=== PATIENT | female | born 1990 | race African-American/Black ===

== ENCOUNTER 2019-08-19 17:24 | Observation (INO) | payer SELFPAY ==
[~2019-08-19] VITALS: Ht 152.4 cm; Wt 50.3 kg
--- NOTE | 2019-08-19 17:55 | NUR ---
Nursing Note: UDS sent to lab, ordered per protocol for no care.
[2019-08-19 18:08] LABS: BILIRUBIN,URINE NEGATIVE (NEG); CLARITY,URINE CLEAR; COLOR,URINE YELLOW; NITRITE,URINE NEGATIVE (NEG); PROTEIN,URINE NEGATIVE (NEG-TRACE)
[2019-08-19 18:14] LABS: BARBITURATES NEG (NEG); BENZODIAZEPINES NEG (NEG); CANNABINOIDS POS (NEG); COCAINE NEG (NEG); METHADONE NEG (NEG); OPIATES NEG (NEG); PHENCYCLIDINE NEG (NEG)
[2019-08-19 18:18] LABS: AMPHETAMINE/METHAMPHETAMINE NEG (NEG)
[2019-08-19 18:21] LABS: BACTERIA,URINE FEW /HPF (0-FEW); RBC,URINE 0 /HPF (0-2); WBC,URINE 0 /HPF (0-4)
[2019-08-19 18:22] LABS: SQUAMOUS EPITHELIAL CELL,UR FEW /LPF
[2019-08-19] MEDS ORDERED: IV RINGERS,LACTATED 1000ML 1,000 ML IV SCH (18:23)
[2019-08-19 18:34] LABS: AMNIO PT NEGATIVE
== END 2019-08-19 20:30 | disposition home or self-care (01) ==
LOC: 3 SO LND 17:24
PROVIDERS: ADMIT Specialist; ATTEND Specialist
DX: O26.899 Other specified pregnancy related conditions, unspecified trimester (principal); R10.2 Pelvic and perineal pain; Z3A.00 Weeks of gestation of pregnancy not specified
CPT/HCPCS: 36415; 80307; 81001; 84112; G0378; G0379

== ENCOUNTER 2019-10-15 17:43 | Observation (INO) | payer SELFPAY ==
[2019-10-15 19:42] LABS: BILIRUBIN,URINE NEGATIVE (NEG); CLARITY,URINE CLEAR; COLOR,URINE YELLOW; NITRITE,URINE NEGATIVE (NEG); PROTEIN,URINE NEGATIVE (NEG-TRACE)
[2019-10-15 19:48] LABS: BARBITURATES NEG (NEG); BENZODIAZEPINES NEG (NEG); CANNABINOIDS POS (NEG); COCAINE NEG (NEG); METHADONE NEG (NEG); OPIATES NEG (NEG); PHENCYCLIDINE NEG (NEG)
[2019-10-15 19:52] LABS: AMPHETAMINE/METHAMPHETAMINE NEG (NEG)
[2019-10-15 19:59] LABS: BACTERIA,URINE FEW /HPF (0-FEW); SQUAMOUS EPITHELIAL CELL,UR FEW /LPF
--- NOTE | 2019-10-15 20:31 | RAD ---
Obstetric ultrasound greater than 14 weeks: Reason for examination: No care. Possible labor. Unsure of dates. 4 para 4 with history of one set of twins. Transabdominal ultrasound examination was performed. Cervix length is normal at 3.4 cm. Single viable intrauterine gestation is present and appears to be in cephalic presentation. Placenta is left lateral and grade 2. Adequate amniotic fluid appears be present with amniotic fluid index of 13.7 cm. Cardiac activity is present with a cardiac rate of 155 bpm and a 4 chambered heart. Three-vessel cord is identified. There is normal cord insertion. There is normal appearance to the bladder stomach kidneys and spine. No gross abnormality seen in the brain. movement is present. Biparietal diameter is 8.18 cm corresponding to gestational age of 32 weeks 6 days. Head circumference is 30.09 cm corresponding to gestational age of 33 weeks 3 days. Abdominal circumference is 27.5 cm corresponding to gestational age of 31 weeks 4 days. Femur length is 6.32 cm corresponding to gestational age of 32 weeks 5 days. Head circumference to abdominal circumference ratio is 1.09. Estimated weight is 192 4 g +/- 2 8 5 g. Estimated gestational age is 32 weeks 5 days with estimated date of confinement of 12/05/2019. IMPRESSION: Single viable intrauterine gestation with mean gestational age estimated at 32 weeks 5 days. Estimated date of confinement is 12/05/2019. No gross abnormalities evident. No abnormality seen at the placenta and there appears to be adequate amniotic fluid present. Electronically signed by: Edel Greer MD (10/15/2019 8:28 PM) [id number]
[2019-10-15 21:44] LABS: BASO % 0 % (0-3); EOS # 0.1 x10^3/uL (0.0-0.7); EOS % 1 % (0-3); HEMATOCRIT 31.2 % (36.0-47.0); HEMOGLOBIN 10.5 g/dL (12.0-15.5); LYMPH # 1.7 x10^3/uL (1.0-4.8); LYMPH % 17 % (24-48); MEAN CORPUSCULAR HEMOGLOBIN 29 pg (25-35); MEAN CORPUSCULAR HGB CONC 34 g/dL (31-37); MEAN CORPUSCULAR VOLUME 85 fL (79-100); MONO # 0.6 x10^3/uL (0.0-1.1); MONO % 6 % (0-9); NEUT # 7.3 x10^3/uL (1.8-7.7); NEUT % 75 % (31-73); PLATELET COUNT 303 x10^3/uL (140-400); RED BLOOD COUNT 3.65 x10^6/uL (3.50-5.40); RED CELL DISTRIBUTION WIDTH 14.4 % (11.5-14.5); WHITE BLOOD COUNT 9.8 x10^3/uL (4.0-11.0)
== END 2019-10-15 22:00 | disposition home or self-care (01) ==
LOC: 3 SO LND 17:43
PROVIDERS: ADMIT Obstetrics & Gynecology; ATTEND Obstetrics & Gynecology
DX: O26.893 Other specified pregnancy related conditions, third trimester (principal); R10.30 Lower abdominal pain, unspecified; Z3A.36 36 weeks gestation of pregnancy; Z98.891 History of uterine scar from previous surgery
CPT/HCPCS: 36415; 76805; 80307; 81001; 85025; 86592; 86703; 86850; 86900; 86901; 87340; G0378; G0379

== ENCOUNTER 2019-11-07 15:41 | Inpatient (IN) | payer SELFPAY ==
[~2019-11-07] VITALS: Ht 152.4 cm; Wt 49.9 kg
[2019-11-07] MEDS ORDERED: OXYTOCIN PREMIX 30 UNIT/500 ML NS BAG. IV ONE (16:00)
[2019-11-07] MEDS ORDERED: IV RINGERS,LACTATED 1000ML 1,000 ML IV SCH (16:12)
[2019-11-07] MEDS ORDERED: TERBUTALINE 1 MG/ML VIAL. SQ PRN (16:15)
[2019-11-07] MEDS ORDERED: LIDOCAINE 1% PF 30 ML VIAL. INJ PRN (16:15)
[2019-11-07] MEDS ORDERED: OXYTOCIN 30 UNIT/500 ML PREMIX 500 ML IV PRN ×3 (16:15→16:30)
[2019-11-07] MEDS ORDERED: 0.9 % SODIUM CHLORIDE 10 ML DISP.SYRIN. IV PRN ×2 (16:15→16:30)
[2019-11-07] MEDS ORDERED: ZOLPIDEM 5 MG TABLET. PO PRN (16:30)
[2019-11-07] MEDS ORDERED: ACETAMINOPHEN 325 MG TABLET. PO PRN (16:30)
[2019-11-07] MEDS ORDERED: MAG HYDROX/ALUMINUM HYD/SIMETH 30 ML ORAL.SUSP PO PRN (16:30)
[2019-11-07] MEDS ORDERED: SIMETHICONE 80 MG TAB.CHEW PO PRN (16:30)
[2019-11-07] MEDS ORDERED: MMR per PROTOCOL. MC PRN (16:30)
[2019-11-07] MEDS ORDERED: diphenhydrAMINE HCL 25 MG CAPSULE PO PRN (16:30)
[2019-11-07] MEDS ORDERED: PHENYLEPH/MINERAL OIL/PETROLAT RECTAL OINTMENT TUBE. RC PRN (16:30)
[2019-11-07] MEDS ORDERED: BENZOCAINE 20% TOPICAL AEROSOL SPRAY 57GM CAN. TP PRN (16:30)
[2019-11-07] MEDS ORDERED: MAGNESIUM HYDROXIDE 2,400 MG/30 ML ORAL.SUSP. PO PRN (16:30)
[2019-11-07] MEDS ORDERED: HYDROCORTISONE 1% TOPICAL OINTMENT 30GM TUBE. TP PRN (16:30)
[2019-11-07] MEDS ORDERED: IBUPROFEN 400 MG TABLET. PO PRN (16:30)
[2019-11-07 16:31] LABS: BASO % 0 % (0-3); EOS # 0.1 x10^3/uL (0.0-0.7); EOS % 1 % (0-3); HEMATOCRIT 34.4 % (36.0-47.0); HEMOGLOBIN 11.1 g/dL (12.0-15.5); LYMPH # 1.7 x10^3/uL (1.0-4.8); LYMPH % 15 % (24-48); MEAN CORPUSCULAR HEMOGLOBIN 27 pg (25-35); MEAN CORPUSCULAR HGB CONC 32 g/dL (31-37); MEAN CORPUSCULAR VOLUME 84 fL (79-100); MONO # 0.9 x10^3/uL (0.0-1.1); MONO % 8 % (0-9); NEUT # 8.4 x10^3/uL (1.8-7.7); NEUT % 76 % (31-73); PLATELET COUNT 305 x10^3/uL (140-400); RED BLOOD COUNT 4.09 x10^6/uL (3.50-5.40); RED CELL DISTRIBUTION WIDTH 14.1 % (11.5-14.5); WHITE BLOOD COUNT 11.1 x10^3/uL (4.0-11.0)
--- NOTE | 2019-11-07 16:38 | PDOC1 ---
OB HISTORY AND PHYSICAL DATE OF ADMISSION DATE OF ADMISSION Date of Admission: Nov 07, 2019 at 15:41 CHIEF COMPLAINT Problems: (1) HISTORY OF PRESENT Other Complications EDC: 11/17/19 LMP: February 2019 HPI: 29y @ 38.4 by 25wk u/s presents to L&D in active labor. The pt has presented to L&D during the , but outside of these eval has never established care. She began ctxing about 2hr prior to admission. She delivered within 2 min of arrival from EMS. She has asthma that requires two meds, but does not have an established PCP to manage her asthma. PMH: Asthma PSH: L/S hernia repair, C/S x 2 Meds: None All: NKDA OBHx: 1. TC/S (for breech), 2. TC/S, 3. ~32wk twin (precipitous) OB labs: A pos, antibody neg, 10.5/31.2, Plt 303, RPR NR, Hep B NR, HIV NR VTE PROPHYLAXIS ORDERED VTE Prophylaxis Devices: No VTE Pharmacological Prophylax: No OB - History Past Family/Social History * Past Medical, Surgical, Family and Obstetric Histories reviewed from chart. OB - Admission Exam Physical Exam Vitals: FHT: 130s +acels/no decels/mLTV [place]: 2 min SVE C/C/+2 Assessment/Plan Assessment/Plan A/P 29y @ 38.4 by 25wk u/s 1.) Active labor precipitous delivery (within 2 minutes of arrival) 2.) Asthma needs to establish with PCP prior to d/c 3.) Rubella unknown will draw today 4.) Prev C/S x 2, x 1 - precipitous delivery 5.) GBS unk 6.) Contraception Depo prior to d/c, arrange for long-term option as outpt Problem Qualifiers (1) : Weeks of gestation: 38 weeks Qualified Codes: Z3A.38 - 38 weeks gestation of ROSEMARIE DOTSON MD Nov 07, 2019 16:38
--- NOTE | 2019-11-07 16:40 | PDOC ---
VAGINAL DELIVERY DATE DATE: 11/07/19 TIME: 16:38 WEIGHT Weight [ ] ADDITIONAL NOTES Patient delivered a viable female infant over intact perineum at 1548. bulb suctioned at perineum. Cord double clamped and cut and infant handed to waiting RN. Wt 5lb 7oz. Apgars 9/9. Placenta delivered spontaneously, intact with 3VC. No lacerations observed. Good hemostatis. 20U of pitocin infused with IVFs. EBL 200. ROSEMARIE DOTSON MD Nov 07, 2019 16:40
[2019-11-07 16:47] LABS: AMPHETAMINE/METHAMPHETAMINE POS (NEG); BARBITURATES NEG (NEG); BENZODIAZEPINES NEG (NEG); CANNABINOIDS POS (NEG); COCAINE NEG (NEG); METHADONE NEG (NEG); OPIATES NEG (NEG); PHENCYCLIDINE NEG (NEG)
[2019-11-07 17:18] VITALS: BP 121/80
[2019-11-07 20:00] VITALS: BP 125/68
[2019-11-07] MEDS: IBUPROFEN 400 MG TABLET. PO PRN (20:05)
[2019-11-08] MEDS: oxyCODONE/APAP 5/325 1 TAB TABLET PO PRN ×3 (00:17→11:41)
[2019-11-08 00:30] VITALS: BP 109/74
[2019-11-08] MEDS: IBUPROFEN 400 MG TABLET. PO PRN ×4 (03:50→23:07)
[2019-11-08 04:00] VITALS: BP 111/75
[2019-11-08] MEDS: DOCUSATE SODIUM 100 MG CAPSULE. PO PRN ×2 (04:03→16:43)
[2019-11-08 05:32] LABS: BASO # 0.1 x10^3/uL (0.0-0.2); BASO % 1 % (0-3); EOS # 0.1 x10^3/uL (0.0-0.7); EOS % 1 % (0-3); HEMATOCRIT 28.9 % (36.0-47.0); HEMOGLOBIN 9.4 g/dL (12.0-15.5); LYMPH # 2.5 x10^3/uL (1.0-4.8); LYMPH % 20 % (24-48); MEAN CORPUSCULAR HEMOGLOBIN 28 pg (25-35); MEAN CORPUSCULAR HGB CONC 33 g/dL (31-37); MEAN CORPUSCULAR VOLUME 85 fL (79-100); MONO # 1.3 x10^3/uL (0.0-1.1); MONO % 10 % (0-9); NEUT % 69 % (31-73); PLATELET COUNT 288 x10^3/uL (140-400); RED BLOOD COUNT 3.41 x10^6/uL (3.50-5.40); RED CELL DISTRIBUTION WIDTH 14.2 % (11.5-14.5)
[2019-11-08] MEDS: FERROUS SULFATE 325 MG TABLET. PO SCH ×2 (08:54→16:43)
--- NOTE | 2019-11-08 09:18 | PDOC ---
PROGRESS NOTES Subjective Subjective Pt with good pain control. Lawrence PO. Voiding. Minimal lochia Objective Objective Vital Signs Date Time Temp Pulse Resp B/P (MAP) Pulse Ox O2 Delivery O2 Flow Rate FiO2 11/08/19 04:00 98.2 64 20 111/75 (87) Room Air 98.2 Physical Exam Physical Exam FFNT below umb No C/C/E Assessment Assessment A/P 29y PPD #1 s/p 1.) PP doing well 2.) Asthma will refer to PCP at PP appt 3.) Rubella unknown results pending 4.) Anemia - Hgb 11.1 -> 9.4, on Fe BID 5.) UDS - Amphetamines and Methamphetamines pos, social work consulted 6.) Contraception Depo prior to d/c, arrange for long-term option as outpt 7.) Cont PP care Comment Review of Relevant I have reviewed the following items arsen (where applicable) has been applied. Labs Laboratory Tests Test 11/07/19 16:19 11/07/19 16:20 11/07/19 16:29 11/08/19 05:10 White Blood Count 11.1 x10^3/uL (4.0-11.0) 13.0 x10^3/uL (4.0-11.0) Red Blood Count 4.09 x10^6/uL (3.50-5.40) 3.41 x10^6/uL (3.50-5.40) Hemoglobin 11.1 g/dL (12.0-15.5) 9.4 g/dL (12.0-15.5) Hematocrit 34.4 % (36.0-47.0) 28.9 % (36.0-47.0) Mean Corpuscular Volume 84 fL (79-100) 85 fL (79-100) Mean Corpuscular Hemoglobin 27 pg (25-35) 28 pg (25-35) Mean Corpuscular Hemoglobin Concent 32 g/dL (31-37) 33 g/dL (31-37) Red Cell Distribution Width 14.1 % (11.5-14.5) 14.2 % (11.5-14.5) Platelet Count 305 x10^3/uL (140-400) 288 x10^3/uL (140-400) Neutrophils (%) (Auto) 76 % (31-73) 69 % (31-73) Lymphocytes (%) (Auto) 15 % (24-48) 20 % (24-48) Monocytes (%) (Auto) 8 % (0-9) 10 % (0-9) Eosinophils (%) (Auto) 1 % (0-3) 1 % (0-3) Basophils (%) (Auto) 0 % (0-3) 1 % (0-3) Neutrophils # (Auto) 8.4 x10^3/uL (1.8-7.7) 9.0 x10^3/uL (1.8-7.7) Lymphocytes # (Auto) 1.7 x10^3/uL (1.0-4.8) 2.5 x10^3/uL (1.0-4.8) Monocytes # (Auto) 0.9 x10^3/uL (0.0-1.1) 1.3 x10^3/uL (0.0-1.1) Eosinophils # (Auto) 0.1 x10^3/uL (0.0-0.7) 0.1 x10^3/uL (0.0-0.7) Basophils # (Auto) 0.0 x10^3/uL (0.0-0.2) 0.1 x10^3/uL (0.0-0.2) Urine Opiates Screen Neg (NEG) Urine Methadone Screen Neg (NEG) Urine Barbiturates Neg (NEG) Urine Phencyclidine Screen Neg (NEG) Urine Amphetamine/Methamphetamine Pos (NEG) Urine Benzodiazepines Screen Neg (NEG) Urine Cocaine Screen Neg (NEG) Urine Cannabinoids Screen Pos (NEG) Urine Ethyl Alcohol Neg (NEG) Treponema pallidum Antibody Nonreactive (Nonreactive) Laboratory Tests Test 11/07/19 16:19 11/07/19 16:20 11/07/19 16:29 11/08/19 05:10 White Blood Count 11.1 x10^3/uL (4.0-11.0) 13.0 x10^3/uL (4.0-11.0) Red Blood Count 4.09 x10^6/uL (3.50-5.40) 3.41 x10^6/uL (3.50-5.40) Hemoglobin 11.1 g/dL (12.0-15.5) 9.4 g/dL (12.0-15.5) Hematocrit 34.4 % (36.0-47.0) 28.9 % (36.0-47.0) Mean Corpuscular Volume 84 fL (79-100) 85 fL (79-100) Mean Corpuscular Hemoglobin 27 pg (25-35) 28 pg (25-35) Mean Corpuscular Hemoglobin Concent 32 g/dL (31-37) 33 g/dL (31-37) Red Cell Distribution Width 14.1 % (11.5-14.5) 14.2 % (11.5-14.5) Platelet Count 305 x10^3/uL (140-400) 288 x10^3/uL (140-400) Neutrophils (%) (Auto) 76 % (31-73) 69 % (31-73) Lymphocytes (%) (Auto) 15 % (24-48) 20 % (24-48) Monocytes (%) (Auto) 8 % (0-9) 10 % (0-9) Eosinophils (%) (Auto) 1 % (0-3) 1 % (0-3) Basophils (%) (Auto) 0 % (0-3) 1 % (0-3) Neutrophils # (Auto) 8.4 x10^3/uL (1.8-7.7) 9.0 x10^3/uL (1.8-7.7) Lymphocytes # (Auto) 1.7 x10^3/uL (1.0-4.8) 2.5 x10^3/uL (1.0-4.8) Monocytes # (Auto) 0.9 x10^3/uL (0.0-1.1) 1.3 x10^3/uL (0.0-1.1) Eosinophils # (Auto) 0.1 x10^3/uL (0.0-0.7) 0.1 x10^3/uL (0.0-0.7) Basophils # (Auto) 0.0 x10^3/uL (0.0-0.2) 0.1 x10^3/uL (0.0-0.2) Urine Opiates Screen Neg (NEG) Urine Methadone Screen Neg (NEG) Urine Barbiturates Neg (NEG) Urine Phencyclidine Screen Neg (NEG) Urine Amphetamine/Methamphetamine Pos (NEG) Urine Benzodiazepines Screen Neg (NEG) Urine Cocaine Screen Neg (NEG) Urine Cannabinoids Screen Pos (NEG) Urine Ethyl Alcohol Neg (NEG) Treponema pallidum Antibody Nonreactive (Nonreactive) Medications Current Medications Sodium Chloride (Normal Saline Flush) 3 ml QSHIFT PRN IV AFTER MEDS AND BLOOD DRAWS; Start 11/07/19 at 16:15 Ringer's Solution 1,000 ml @ 125 mls/hr Q8H IV ; Start 11/07/19 at 16:12; Stop 11/07/19 at 20:20; Status DC Terbutaline Sulfate (Brethine) 0.25 mg 1X PRN PRN SQ SEE COMMENTS; Start 11/07/19 at 16:15; Stop 11/08/19 at 16:14 Lidocaine HCl (Xylocaine 1% Pf 30ml Vial) 30 ml 1X PRN PRN INJ SEE COMMENTS; Start 11/07/19 at 16:15; Stop 11/09/19 at 16:14 Oxytocin/Sodium Chloride 500 ml @ 0 mls/hr CONT PRN IV SEE I/O RECORD; Start 11/07/19 at 16:15; Stop 11/07/19 at 20:21; Status DC Oxytocin/Sodium Chloride 500 ml @ 0 mls/hr CONT PRN PRN IV Post delivery bleeding; Start 11/07/19 at 16:15 Ibuprofen (Motrin) 800 mg PRN Q6HRS PRN PO PAIN Last administered on 11/08/19at 03:50; Start 11/07/19 at 16:15 Sodium Chloride (Normal Saline Flush) 10 ml QSHIFT PRN IV AFTER MEDS AND BLOOD DRAWS; Start 11/07/19 at 16:30 Oxytocin/Sodium Chloride 500 ml @ 62.5 mls/hr CONT PRN IV SEE I/O RECORD; Start 11/07/19 at 16:30; Stop 11/08/19 at 00:29; Status DC Acetaminophen (Tylenol) 650 mg PRN Q6HRS PRN PO MILD PAIN / TEMP; Start 11/07/19 at 16:30 Ibuprofen (Motrin) 800 mg PRN Q8HRS PRN PO INFLAMMATION/PAIN PREVENTION; Start 11/07/19 at 16:30 Docusate Sodium (Colace) 100 mg PRN BID PRN PO CONSTIPATION Last administered on 11/08/19at 04:03; Start 11/07/19 at 16:30 Magnesium Hydroxide (Milk Of Magnesia) 2,400 mg PRN DAILY PRN PO CONSTIPATION Last administered on 11/08/19at 08:54; Start 11/07/19 at 16:30 Al Hydroxide/Mg Hydroxide (Mylanta Plus Xs) 30 ml PRN Q4HRS PRN PO HEARTBURN / GAS; Start 11/07/19 at 16:30 Simethicone (Gas-X) 80 mg PRN AFTMEALHC PRN PO GAS / BLOATING; Start 11/07/19 a t 16:30 Diphenhydramine HCl (Benadryl) 25 mg PRN Q6HRS PRN PO ITCHING; Start 11/07/19 at 16:30 Benzocaine (Americaine) 1 spray PRN QID PRN TP TOPICAL PAIN; Start 11/07/19 at 16:30 Phenyleph/Shark Oil/Min Oil/Petrol (Preparation H) 1 corry PRN QID PRN RC RECTAL PAIN; Start 11/07/19 at 16:30 Hydrocortisone (Cortaid) 1 corry PRN QID PRN TP PERINEAL PAIN; Start 11/07/19 at 16:30 Ferrous Sulfate (Feosol) 325 mg BIDWMEALS PO Last administered on 11/08/19at 08:54; Start 11/08/19 at 08:00 Zolpidem Tartrate (Ambien) 5 mg PRN QHS PRN PO INSOMNIA, MAY REPEAT X1; Start 11/07/19 at 16:30 Info (Do NOT chart on this placeholder) 1 ea 1X PRN PRN MC SEE COMMENTS; Start 11/07/19 at 16:30 Info (Do NOT chart on this placeholder) 1 ea 1X PRN PRN MC SEE COMMENTS; Start 11/07/19 at 16:30 Oxycodone/ Acetaminophen (Percocet 5/325) 1 tab PRN Q4HRS PRN PO MILD PAIN 1-3 Last administered on 11/08/19at 05:44; Start 11/07/19 at 16:30 Oxytocin/Sodium Chloride (Oxytocin Premix Infusion) 30 unit STK-MED ONCE IV ; Start 11/07/19 at 16:00; Stop 11/08/19 at 08:55; Status DC Vitals/I & O Vital Sign - Last 24 Hours 11/07/19 11/07/19 11/08/19 11/08/19 17:18 20:00 00:17 00:30 Temp 97.3 98.0 98.2 97.3 98.0 98.2 Pulse 64 85 90 Resp 20 24 24 B/P (MAP) 121/80 (94) 125/68 (87) 109/74 (86) O2 Delivery Room Air Room Air Room Air Room Air 11/08/19 11/08/19 01:15 04:00 Temp 98.2 98.2 Pulse 64 Resp 20 20 B/P (MAP) 111/75 (87) O2 Delivery Room Air ROSEMARIE DOTSON MD Nov 08, 2019 09:18
[2019-11-08 12:48] VITALS: BP 120/74
--- NOTE | 2019-11-08 13:46 | NUR ---
SS following up with referral regarding "mom with positive drug screen and history of not having custody of other children." SS reviewed chart and spoke with mother and RN. Mother UDS positive for Meth and UDS positive for Meth. RN attempting to collect Meconium. SS met with mother to assess circumstances surrounding referral. As observed, mother having difficulties focusing and answering questions. Mother reported she has had difficulties with addiction. Mother unable to provide definitive answer to when her last use of substances took place. Mother just reported that her last use was "awhile ago." Mother reported that she has lost custody of three other children to [facility]. She reported that her grandmother adopted her oldest child and that her twins were adopted by foster parents. Mother reported that she was too afraid to seek substance abuse help or care because she knew [place] [employer] and [facility]. [facility] hotline report made for positive drug screen, report of DCF history, and no care. Intake#[id number]. SS contacted [facility] and discussed with [facility] animal cruelty investigation supervisor, Dolly Hernández. Dolly reported being very familiar with mom and requested that remain in the hospital until they can file appropriate paperwork. and mother RN notified. SS will await further communication from [facility].
[2019-11-08] MEDS ORDERED: ALBUTEROL SULFATE 2.5 MG/3 ML NEBU. NEB PRN (18:00)
[2019-11-08 18:06] VITALS: BP 120/70
[2019-11-08] MEDS: CLOTRIMAZOLE 1% TOPICAL CREAM 15GM TUBE. TP SCH (18:22)
[2019-11-08 20:00] VITALS: BP 111/62
[2019-11-09 02:00] VITALS: BP 110/53
[2019-11-09 08:30] VITALS: BP 101/54
[2019-11-09] MEDS: FERROUS SULFATE 325 MG TABLET. PO SCH (10:06)
[2019-11-09] MEDS: DOCUSATE SODIUM 100 MG CAPSULE. PO PRN (10:06)
[2019-11-09] MEDS: CLOTRIMAZOLE 1% TOPICAL CREAM 15GM TUBE. TP SCH (10:09)
[2019-11-09] MEDS ORDERED: IBUP-1060 PO (10:23)
[2019-11-09] MEDS ORDERED: FERR325T14 PO (10:23)
[2019-11-09] MEDS ORDERED: DOCU-109 PO (10:23)
[2019-11-09] MEDS ORDERED: medroxyPROGESTERone IM 150 MG/ML VIAL. IM ONE (10:30)
--- NOTE | 2019-11-09 10:36 | PDOC ---
PROGRESS NOTES Subjective Subjective Pt with good pain control. Lawrence PO. Voiding. Minimal lochia Objective Objective Vital Signs Date Time Temp Pulse Resp B/P (MAP) Pulse Ox O2 Delivery O2 Flow Rate FiO2 11/09/19 08:30 98.1 67 12 101/54 (70) 99 Room Air 98.1 Physical Exam Physical Exam FFNT below umb no C/C/E Assessment Assessment A/P 29y PPD #2 s/p 1.) PP doing well 2.) Asthma will refer to PCP at PP appt 3.) Rubella unknown results pending 4.) Anemia - Hgb 11.1 -> 9.4, on Fe BID 5.) UDS - Amphetamines and Methamphetamines pos, social work consulted 6.) Contraception will give Depo prior to d/c, arrange for long-term option as outpt 7.) D/C home Comment Review of Relevant I have reviewed the following items arsen (where applicable) has been applied. Labs Laboratory Tests Test 11/07/19 16:19 11/07/19 16:20 11/07/19 16:29 11/08/19 05:10 White Blood Count 11.1 x10^3/uL (4.0-11.0) 13.0 x10^3/uL (4.0-11.0) Red Blood Count 4.09 x10^6/uL (3.50-5.40) 3.41 x10^6/uL (3.50-5.40) Hemoglobin 11.1 g/dL (12.0-15.5) 9.4 g/dL (12.0-15.5) Hematocrit 34.4 % (36.0-47.0) 28.9 % (36.0-47.0) Mean Corpuscular Volume 84 fL (79-100) 85 fL (79-100) Mean Corpuscular Hemoglobin 27 pg (25-35) 28 pg (25-35) Mean Corpuscular Hemoglobin Concent 32 g/dL (31-37) 33 g/dL (31-37) Red Cell Distribution Width 14.1 % (11.5-14.5) 14.2 % (11.5-14.5) Platelet Count 305 x10^3/uL (140-400) 288 x10^3/uL (140-400) Neutrophils (%) (Auto) 76 % (31-73) 69 % (31-73) Lymphocytes (%) (Auto) 15 % (24-48) 20 % (24-48) Monocytes (%) (Auto) 8 % (0-9) 10 % (0-9) Eosinophils (%) (Auto) 1 % (0-3) 1 % (0-3) Basophils (%) (Auto) 0 % (0-3) 1 % (0-3) Neutrophils # (Auto) 8.4 x10^3/uL (1.8-7.7) 9.0 x10^3/uL (1.8-7.7) Lymphocytes # (Auto) 1.7 x10^3/uL (1.0-4.8) 2.5 x10^3/uL (1.0-4.8) Monocytes # (Auto) 0.9 x10^3/uL (0.0-1.1) 1.3 x10^3/uL (0.0-1.1) Eosinophils # (Auto) 0.1 x10^3/uL (0.0-0.7) 0.1 x10^3/uL (0.0-0.7) Basophils # (Auto) 0.0 x10^3/uL (0.0-0.2) 0.1 x10^3/uL (0.0-0.2) Urine Opiates Screen Neg (NEG) Urine Methadone Screen Neg (NEG) Urine Barbiturates Neg (NEG) Urine Phencyclidine Screen Neg (NEG) Urine Amphetamine/Methamphetamine Pos (NEG) Urine Benzodiazepines Screen Neg (NEG) Urine Cocaine Screen Neg (NEG) Urine Cannabinoids Screen Pos (NEG) Urine Ethyl Alcohol Neg (NEG) Treponema pallidum Antibody Nonreactive (Nonreactive) Rubella IgG Antibody 12.70 index (Immune >0.99) Medications Current Medications Sodium Chloride (Normal Saline Flush) 3 ml QSHIFT PRN IV AFTER MEDS AND BLOOD DRAWS; Start 11/07/19 at 16:15 Ringer's Solution 1,000 ml @ 125 mls/hr Q8H IV ; Start 11/07/19 at 16:12; Stop 11/07/19 at 20:20; Status DC Terbutaline Sulfate (Brethine) 0.25 mg 1X PRN PRN SQ SEE COMMENTS; Start 11/07/19 at 16:15; Stop 11/08/19 at 16:14; Status DC Lidocaine HCl (Xylocaine 1% Pf 30ml Vial) 30 ml 1X PRN PRN INJ SEE COMMENTS; Start 11/07/19 at 16:15; Stop 11/09/19 at 16:14 Oxytocin/Sodium Chloride 500 ml @ 0 mls/hr CONT PRN IV SEE I/O RECORD; Start 11/07/19 at 16:15; Stop 11/07/19 at 20:21; Status DC Oxytocin/Sodium Chloride 500 ml @ 0 mls/hr CONT PRN PRN IV Post delivery bleeding; Start 11/07/19 at 16:15 Ibuprofen (Motrin) 800 mg PRN Q6HRS PRN PO PAIN Last administered on 11/08/19at 23:07; Start 11/07/19 at 16:15 Sodium Chloride (Normal Saline Flush) 10 ml QSHIFT PRN IV AFTER MEDS AND BLOOD DRAWS; Start 11/07/19 at 16:30 Oxytocin/Sodium Chloride 500 ml @ 62.5 mls/hr CONT PRN IV SEE I/O RECORD; Start 11/07/19 at 16:30; Stop 11/08/19 at 00:29; Status DC Acetaminophen (Tylenol) 650 mg PRN Q6HRS PRN PO MILD PAIN / TEMP; Start 11/07/19 at 16:30 Ibuprofen (Motrin) 800 mg PRN Q8HRS PRN PO INFLAMMATION/PAIN PREVENTION; Start 11/07/19 at 16:30; Stop 11/09/19 at 09:08; Status DC Docusate Sodium (Colace) 100 mg PRN BID PRN PO CONSTIPATION Last administered on 11/09/19at 10:06; Start 11/07/19 at 16:30 Magnesium Hydroxide (Milk Of Magnesia) 2,400 mg PRN DAILY PRN PO CONSTIPATION Last administered on 11/08/19at 08:54; Start 11/07/19 at 16:30 Al Hydroxide/Mg Hydroxide (Mylanta Plus Xs) 30 ml PRN Q4HRS PRN PO HEARTBURN / GAS Last administered on 11/08/19at 14:34; Start 11/07/19 at 16:30 Simethicone (Gas-X) 80 mg PRN AFTMEALHC PRN PO GAS / BLOATING; Start 11/07/19 at 16:30 Diphenhydramine HCl (Benadryl) 25 mg PRN Q6HRS PRN PO ITCHING Last administered on 11/09/19at 01:40; Start 11/07/19 at 16:30 Benzocaine (Americaine) 1 spray PRN QID PRN TP TOPICAL PAIN; Start 11/07/19 at 16:30 Phenyleph/Shark Oil/Min Oil/Petrol (Preparation H) 1 corry PRN QID PRN RC RECTAL PAIN; Start 11/07/19 at 16:30 Hydrocortisone (Cortaid) 1 corry PRN QID PRN TP PERINEAL PAIN; Start 11/07/19 at 16:30 Ferrous Sulfate (Feosol) 325 mg BIDWMEALS PO Last administered on 11/09/19at 10:06; Start 11/08/19 at 08:00 Zolpidem Tartrate (Ambien) 5 mg PRN QHS PRN PO INSOMNIA, MAY REPEAT X1; Start 11/07/19 at 16:30 Info (Do NOT chart on this placeholder) 1 ea 1X PRN PRN MC SEE COMMENTS; Start 11/07/19 at 16:30 Info (Do NOT chart on this placeholder) 1 ea 1X PRN PRN MC SEE COMMENTS; Start 11/07/19 at 16:30 Oxycodone/ Acetaminophen (Percocet 5/325) 1 tab PRN Q4HRS PRN PO MILD PAIN 1-3 Last administered on 11/08/19at 11:41; Start 11/07/19 at 16:30 Oxytocin/Sodium Chloride (Oxytocin Premix Infusion) 30 unit STK-MED ONCE IV ; Start 11/07/19 at 16:00; Stop 11/08/19 at 08:55; Status DC Albuterol Sulfate (Ventolin Neb Soln) 2.5 mg PRN Q6HRS PRN NEB SHORTNESS OF BREATH; Start 11/08/19 at 18:00 Clotrimazole (Lotrimin) 1 corry BID TP Last administered on 11/09/19at 10:09; Start 11/08/19 at 21:00 Medroxyprogesterone Acetate (Depo-Provera Im) 150 mg 1X ONCE IM ; Start 1/24/20 at 10:30; Stop 11/09/19 at 10:31; Status DC Active Scripts Active Ferrous Sulfate 325 Mg Tablet 1 Tab PO BID Colace (Docusate Sodium) 100 Mg Capsule 100 Mg PO BID Ibuprofen 800 Mg Tablet 800 Mg PO PRN Q6HRS PRN Vitals/I & O Vital Sign - Last 24 Hours 11/08/19 11/08/19 11/08/19 11/09/19 12:48 18:06 20:00 02:00 Temp 98.1 97.8 97.7 98.1 98.1 97.8 97.7 98.1 Pulse 68 78 78 75 Resp 18 16 16 B/P (MAP) 120/74 (89) 120/70 (87) 111/62 (78) 110/53 (72) Pulse Ox 98 100 98 100 O2 Delivery Room Air Room Air Room Air 11/09/19 11/09/19 08:30 08:30 Temp 98.1 98.1 Pulse 67 Resp 12 B/P (MAP) 101/54 (70) Pulse Ox 99 O2 Delivery Room Air Room Air ROSEMARIE DOTSON MD Nov 09, 2019 10:36
--- NOTE | 2019-11-09 11:19 | DS ---
DATE OF DISCHARGE: 11/09/2019 ADMITTING DIAGNOSES: 1. Intrauterine at 38 weeks and 4 days by 25-week ultrasound. 2. Active labor. 3. Asthma. 4. Previous section x 2, vaginal after section x 1. 5. GBS unknown. DISCHARGE DIAGNOSES: 1. Intrauterine at 38 weeks and 4 days by 25-week ultrasound. 2. Active labor. 3. Asthma. 4. Previous section x 2, vaginal after section x 1. 5. GBS unknown. 6. UDS positive for methamphetamine. PROCEDURE: Spontaneous vaginal after . BRIEF HOSPITAL COURSE: The patient is a 29-year-old 4, para 2-1-0-4, who presented to Labor and Delivery at 38 weeks and 4 days by 25-week ultrasound with active labor. The patient had been seen on Labor and Delivery a few times prior to this, but had never established care in any of the surrounding clinics. The patient began shanti 2 hours before her admission and delivered within 5 minutes of her arrival by EMS by vaginal delivery. After her labs were obtained, it was found that she had no rubella on file, so rubella was sent. This ultimately returned immune. The patient also had a UDS, which was positive for amphetamine/methamphetamine. The baby was tested subsequently. Social work was discussed. Of note, the patient's hemoglobin on admission was 11.1 and dropped to 9.4. Otherwise by day #2, the patient was meeting all discharge criteria and desired discharge home. DISCHARGE INSTRUCTIONS: The patient was told not to lift anything greater than 20 pounds, to have pelvic rest for 6 weeks. CALL IF: The patient is to call if she had fevers, chills, nausea, vomiting, abdominal pain or any additional questions or concerns. FOLLOWUP APPOINTMENT: The patient was to follow up on 12/19/2019 at 2:00 p.m. for a appointment with Dr. Dotson. DISCHARGE MEDICATIONS: The patient was given a prescription for Motrin 800 mg 30 pills, Colace 100 mg 30 pills and ferrous sulfate 325 mg 30 pills. ROSEMARIE DOTSON MD DR: FIDENCIO/angeline JOB#: [id number] / [id number] LUIZ
[2019-11-09] MEDS ORDERED: buPROPion XL 150 MG TAB.ER.24H. PO SCH (13:00)
[2019-11-09] MEDS ORDERED: BUPR150T15 PO (15:10)
[2019-11-09] MEDS: IBUPROFEN 400 MG TABLET. PO PRN (15:42)
[2019-11-09] MEDS ORDERED: OXYC1TAB15 PO (16:18)
[2019-11-09] MEDS ORDERED: FLU VAX QS 2019-20 (36MOS+)/PF 0.5 ML SYRINGE. VAX IM ONE (17:00)
--- NOTE | 2019-11-09 17:09 | NUR ---
Discharge Note: JANET KLINE [address] Discharge instructions and discharge home medications reviewed with Patient and a copy given. All questions have been answered and understanding verbalized. Follow up appointments reviewed. The following instructions and handouts were given: [facility] Patient Discharge Instruction Sheet and Medication Schedule, Discharge Instructions Post Patients, Care After Vaginal Delivery. Pt. standing in hallway and refused Flu vaccine after receiving news from [facility]. Pt. refused to return to pt. room. Pt. visibly upset. Pt. sobbing in hallway and rocking against wall. Pt. wanted off of this unit immediately. This nurse spoke with [facility] office supervisor. [facility] office supervisor stated ok to let pt. wait in ED waiting room for cab. ED staff notified by peer RN. Vital signs not obtained. Patient discharged to home with self-care via ambulation to ED waiting room.
--- NOTE | 2019-11-12 14:06 | PATHOLOGY ---
[facility] Accession Number: [id number] . 01 Material submitted: . placenta - PLACENTA . 01 Clinical history: . Post vaginal delivery of live baby girl Apgars 9, 9 : 4 para: 3 EDC: 12/11/2019 Intrauterine growth retardation Limited PNC . 02 Diagnosis: Placenta, spontaneous vaginal delivery: - Third trimester placenta, 400 grams. - Attached 30.8 cm segment of tri-vascular umbilical cord without significant inflammation. - Acute chorioamnionitis, focal, mild. - Moderate meconium staining of membranes. - Placental parenchyma with focal retroplacental hematomata. (SKM:[facility] 11/12/2019) [facility] 11/12/2019 1156 Local . 02 Electronically signed: . Blaise Red MD, Pathologist NPI- [id number] . 01 Gross description: . The specimen is received in formalin labeled "Maryjo Tracy, placenta" and consists of an oval wagner placenta measuring 17.8 x 14.6 x 2.3 cm and weighing 400 g after removal of membranes and umbilical cord. The membranes are pink-katz thin translucent with scattered retro-membranous clot. The surface is bluegray and well vascularized with eccentrically inserted 3 vessel umbilical cord, 4.1 cm from edge. The cord measures 30.8 cm in length and ranging from 0.9 cm to 1.3 cm in diameter. The cord is white-katz with moderate helical twists and no true knots. The maternal surface shows complete and intact cotyledons with a small amount of adherent blood clot. Sectioning reveals a maroon-red and spongy parenchyma with no gross lesions. Chrome Tanner sections are submitted as follows: . A1: Surface vessels A2: Umbilical cord and membrane rolls A3: Full thickness section A4: Maternal surface with clot (SDY; 11/09/2019) SYU/SYU 11/09/2019 1712 Local . 02 Pathologist provided ICD-10: O41.1230, O77.0, O43.893, Z37.0, Z3A.38 . 02 CPT . 499053 Specimen Comment: A courtesy copy of this report has been sent to [phone] Specimen Comment: Report sent to Performed at: 01 [facility] [address] [id number] MD Nghia Sales MD Phone: [phone] Performed at: 02 [facility] [address] [place] [id number] MD Mikie Pineda MD Phone: [phone]
== END 2019-11-09 17:50 | disposition home or self-care (01) | DRG 806 ==
LOC: OBSVTOIN 15:41 → 3 SO LND 15:41 → 3 NORTH 19:40
PROVIDERS: ADMIT Obstetrics & Gynecology; ATTEND Obstetrics & Gynecology
PROC: 10E0XZZ Delivery of Products of Conception, External Approach (ICD-10-PCS; principal; 2019-11-07)
DX: O62.3 Precipitate labor (principal); O99.324 Drug use complicating childbirth; Z37.0 Single live birth; F15.90 Other stimulant use, unspecified, uncomplicated; O99.52 Diseases of the respiratory system complicating childbirth; J45.909 Unspecified asthma, uncomplicated; O34.219 Maternal care for unspecified type scar from previous cesarean delivery; O99.02 Anemia complicating childbirth; D64.9 Anemia, unspecified; Z3A.38 38 weeks gestation of pregnancy
CPT/HCPCS: 36415; 80307; 85025; 86592; 86762; 86850; 86900; 86901; 88307; J2590; Q0163; G0378